=== PATIENT | male | born 1990 | race Caucasian/White ===

== ENCOUNTER → 2019-11-12 | Outpatient (CLI) | payer BC ==
[~2019-11-12] VITALS: Ht 170.2 cm; Wt 70.3 kg
== END | disposition home or self-care (01) ==
LOC: SUR 08:52 → EDSTATUS 11-19 11:00
PROVIDERS: ATTEND Orthopaedic Surgery Adult Reconstructive Orthopaedic Surgery
DX: Z01.818 Encounter for other preprocedural examination (principal); M67.431 Ganglion, right wrist; Z98.890 Other specified postprocedural states; Z79.899 Other long term (current) drug therapy